=== PATIENT | female | born 1975 | race Caucasian/White ===

== ENCOUNTER 2020-09-05 10:38 | Emergency (ER) | payer OTHER, SELFPAY ==
[2020-09-05 10:57] VITALS: BP 137/75; PULSE 91; RESP 20; TEMP 36.5; O2SAT 99
--- NOTE | 2020-09-05 11:09 | ED.URI ---
HPI - URI/Sore Throat General Chief Complaint: Upper Respiratory Infection Stated Complaint: chest congestion/ear pain Source: patient and RN notes reviewed Limitations: no limitations History of Present Illness HPI Narrative: The patient, a non-smoker/nondrinker school worker, presents with upper respiratory symptoms. Patient states she has a couple day history of myalgias with frontal sinus headache, nasal congestion, scratchy throat, associated with preceding bilateral R>L ear discomfort. No fever, CP, wheezing/ sneezing. S OB, loss of taste/smell, N/V/D/dehydration; she does have a pet trigger [cat] at home. Patient advised will be given Covid test prescription. Related Data Allergies Allergy/AdvReac Type Severity Reaction Status Date / Time No Known Allergies Allergy Verified 09/05/20 11:19 Review of Systems Review of Systems: Narrative: General/Constitutional: No weight loss,fever Eyes: N0: Redness,discharge Ears/Nose/Throat: No: Epistaxis,ear discharge Respiratory: Denies: Hemoptysis Gastrointestinal: No Vomiting, Bleeding-rectal Skin: No Lumps, eruption Neurologic: No Focal Weakness,Sz Hematologic: Denies: Petechiae/Purpura Psychiatric: No: Suicida ideationl All Other Systems: Reviewed and Negative [facility] Social History Social History Gender identity (if verbalized by the patient): Female Comments At time of signature, agree with nursing past medical, surgical, social and family history. There is no relevant family history pertinent to the presenting complaint Exam Narrative: Exam Narrative: General Appearance: Well appearing, Conjunctiva clear Ears: Auditory canal normal, TM normal Nose: Rhinorrhea, Mucousal erythema Mouth/Throat: MM moist, Uvula midline, Pharyngeal erythema Neck: Supple, No adenopathy Respiratory: No respiratory distress, Breath sounds equal, Clear to auscultation Cardiovascular: RRR, No JVD Musculoskeletal: Non tender, Normal strength Skin: Warm, Dry Neurological: A&O x3,, Normal affect Course Vital Signs Vital signs: Vital Signs Temperature 97.7 F 09/05/20 10:57 Pulse Rate 91 09/05/20 10:57 Respiratory Rate 20 09/05/20 10:57 Blood Pressure 137/75 09/05/20 10:57 Pulse Oximetry 99 09/05/20 10:57 Temperature 97.7 F 09/05/20 10:57 Pulse Rate 91 09/05/20 10:57 Respiratory Rate 20 09/05/20 10:57 Blood Pressure 137/75 09/05/20 10:57 Pulse Oximetry 99 09/05/20 10:57 MDM - URI/Sore Throat Lab Data Labs: Influenza A Screen Negative Reference Range: Negative Influenza B Screen Negative Reference Range: Negative Strep Screen Presumptive Negative *(Reference Range: Negative)* Discharge Plan Discharge Clinical Impression: Upper respiratory infection Qualifiers: URI type: unspecified URI Qualified Code(s): J06.9 - Acute upper respiratory infection, unspecified Patient Disposition: Home, Self-Care Condition: Stable Instructions: Antibiotic Form, Rhinosinusitis (ED) Prescriptions: New azithromycin 250 mg tablet See Rx Instructions .ROUTE .COMPLEX Qty: 6 RF: 0 prednisone 20 mg tablet 40 mg PO DAILY Qty: 6 RF: 0 azelastine 137 mcg (0.1 %) aerosol,spray 137 mcg NASAL Q12H Qty: 30 RF: 0 Other Ambulatory Orders: SARS-CoV-2 RNA, Qual RT-PCR (Routine) Location: Determined by Patient Ordered By: Carlos Enrique Ross Follow-up/Referrals: UNKNOWN,DOCTOR [Primary Care Provider] - Stand Alone Forms: Work/School Release IP
== END 2020-09-05 11:44 | disposition home or self-care (01) ==
PROVIDERS: Emergency Provider Emergency Medicine
DX: J06.9 Acute upper respiratory infection, unspecified (principal); Z20.828 Contact with and (suspected) exposure to other viral communicable diseases; M79.7 Fibromyalgia
CPT/HCPCS: 87081; 87804; 87880; 99203; G0463